=== PATIENT | female | born 1985 | race Caucasian/White ===

== ENCOUNTER 2018-01-04 06:10 | Day surgery (SDC) | payer OTHER ==
[2018-01-04] MEDS ORDERED: Propofol 10 mg/ml Inj (20 ML) ONE (07:12)
[2018-01-04] MEDS ORDERED: Midazolam 2 MG/2 ML VIAL ONE (07:12)
[2018-01-04] MEDS ORDERED: Lidocaine/Epinephrine 1% 1:100000 10 ML IJ ONE (07:33)
[2018-01-04] MEDS ORDERED: ceFAZolin IV 1 gm in Dextrose 1 GM/50 ML BAG IVPB ONE (07:33)
[2018-01-04] MEDS ORDERED: ceFAZolin 1 gm FROZEN Premix 1 GM/50 ML ML IVPB ONE (07:34)
[2018-01-04] MEDS ORDERED: Bupivacaine 0.25% 20 ML INJ IJ ONE (07:34)
[2018-01-04] MEDS ORDERED: Rocuronium 10 mg/ml (5 ml) ONE ×2 (11:23→11:25)
[2018-01-04] MEDS ORDERED: Morphine 4 MG/ML VIAL ONE ×2 (11:24→12:26)
[2018-01-04] MEDS ORDERED: Neostigmine Methylsulfate 3mg/3ml Syringe IV ONE (12:14)
[2018-01-04] MEDS ORDERED: HYDROmorphone 0.5 mg/0.5 ml ISec IVP PRN (12:43)
[2018-01-04] MEDS ORDERED: Oxycodone/Acetaminophen 5/325 mg Tab PO PRN (12:53)
--- NOTE | 2018-01-04 12:57 | PCM.SURG1 ---
Surgeon's Initial Post Op Note - Surgeon's Notes Surgeon: Dr. Short Manager Rfid: Dr. Doshi PGY3, Cindy MEYERS Type of Anesthesia: General Endo Pre-Operative Diagnosis: umbilical hernia, diastasis Operative Findings: see operative report Post-Operative Diagnosis: same Operation Performed: robotic umbilical hernia repair with mesh placement. robotic diastasis plication Specimen/Specimens Removed: preperitoneal fat Estimated Blood Loss: EBL {In ML}: 25 Blood Products Given: N/A Drains Used: No Drains Post-Op Condition: Good Date of Surgery/Procedure: 01/04/18 Time of Surgery/Procedure: 09:00
[2018-01-04 15:44] VITALS: O2SAT 100
[2018-01-04 17:11] VITALS: BP 121/77; PULSE 93; RESP 16; TEMP 98.7
--- NOTE | 2018-01-05 01:29 | OP ---
Copied To: Jose David Short MD Attending MD: Jose David Short MD PROCEDURE DATE: 01/04/2018 PREOPERATIVE DIAGNOSES: 1. Umbilical hernia. 2. Diastasis of recti. 3. Status post section with possible postoperative adhesions. POSTOPERATIVE DIAGNOSES: 1. Umbilical hernia, 2 x 2 cm size. 2. Diastasis of recti, 8 x 5 cm size. 3. Incisional hernia at site of section scar, 2 x 2 cm size. PROCEDURES DONE: 1. Robotic umbilical hernia repair with a mesh. 2. Robotic diastasis of recti repair with a mesh. 3. Robotic incisional hernia at section site repair with a mesh. 4. Laparoscopic transversus abdominis plane block placement. SURGEON: Jose David Short MD ASSISTANTS: RAMIRO Grace and Vic Ribeiro PGY-3 resident. ANESTHESIA: General endotracheal tube anesthesia. ESTIMATED BLOOD LOSS: Around 10 mL. DRAIN: None. PATHOLOGY: The hernial sac and content of umbilical hernia was sent for the pathology. COMPLICATIONS: None. INTRAOPERATIVE FINDINGS: The patient had approximately 2 x 2 cm umbilical hernia with large diastasis of recti of approximately 8 x 5 cm size in supraumbilical as well as infraumbilical areas. The patient also had a 2 x 2 cm incisional hernia at the site of scar. The patient had no postoperative adhesion. DESCRIPTION OF PROCEDURE: On intraoperative steps, this is a 32-year-old female who was diagnosed with umbilical hernia as well as diastasis of recti. The patient was consented for robotic umbilical hernia repair with a mesh with diastasis of recti repair with a mesh. The patient was brought to the OR, placed supine on the operating table. After induction of the anesthesia, the abdomen was prepped and draped in the usual sterile fashion. The left upper quadrant incision was made after incising skin and subcutaneous tissue. Using the Visiport technique, the peritoneal cavity was entered, pneumo was created, and another two 8-mm ports were placed in left flank and left lower quadrant as well as on the right flank and right upper quadrant. After that, robot was brought in. Camera arm as well as arm-1 and arm-2 were docked. The patient was found to have large umbilical hernia with large diastasis of recti. The patient also had incisional hernia at the site of scar. First, the incisional hernia was repaired with #1 Prolene V-Loc suture in two layers. Then, the umbilical hernia site was repaired with #1 Prolene V-Loc suture in two layers. Diastasis of recti was extending from the infraumbilical to the supraumbilical region. Diastasis of recti was repaired with #1 Prolene V-Loc suture. Both sides of the rectus muscles, right and left sides, were marked. The rectus muscle was mobilized in the midline, and it was sutured with #1 Prolene V-Loc suture in two layers. After proper repair, the two meshes were placed. First, a 5-cm circular mesh was placed in the lower abdomen to cover the incisional hernia, and then another 15 x 9 cm mesh was introduced and it was implanted on top of the umbilical hernia repair as well as diastasis recti repair. After proper implantation of the mesh, the specimen was sent off the table for the pathology. Robot was undocked. All the instruments were taken out. The mesh implantation was done with tacker. After proper hemostasis, all the ports were closed in two layers, subcutaneously with 2-0 Vicryl and the skin with 4-0 Monocryl. A dry sterile dressing was applied. The patient tolerated the procedure well. Counts of instrument and gauze were correct. There were no apparent complications. The patient was extubated in OR, sent to the postanesthesia care unit in stable condition. Jose David Short MD
== END 2018-01-04 17:20 | disposition home or self-care (01) ==
LOC: C.SDS 06:10
PROVIDERS: ATTEND Surgery Surgical Critical Care
DX: K42.9 Umbilical hernia without obstruction or gangrene (principal); M62.08 Separation of muscle (nontraumatic), other site; K43.2 Incisional hernia without obstruction or gangrene
CPT/HCPCS: 49585; 49654; 88305; J0690; J1100; J2001; J2250; J2270; J2405; J2704; J2710; J3010